=== PATIENT | male | born 1990 ===

== ENCOUNTER 2021-08-23 07:48 | Outpatient (CLI) | payer OTHER | END 2021-08-23 07:50 | disposition home or self-care (01) | LOC: MRI 07:48 | PROVIDERS: ATTEND General Practice | DX: M25.562 Pain in left knee (principal) | CPT/HCPCS: 73718 ==

== ENCOUNTER 2022-02-05 09:48 | Outpatient (CLI) | payer OTHER | END 2022-02-05 10:08 | disposition home or self-care (01) | LOC: SONOGRAMA 09:48 | PROVIDERS: ATTEND Physical Medicine & Rehabilitation | DX: M25.511 Pain in right shoulder (principal) ==

== ENCOUNTER 2022-03-03 11:44 | Emergency (ER) | payer OTHER ==
[~2022-03-03] VITALS: Ht 190.5 cm; Wt 88.5 kg
== END 2022-03-03 14:55 | disposition home or self-care (01) ==
LOC: ER 11:44
DX: R07.89 Other chest pain (principal)

== ENCOUNTER 2022-03-15 11:42 | Outpatient (CLI) | payer OTHER | END 2022-03-15 12:06 | disposition home or self-care (01) | LOC: MRI 11:42 | PROVIDERS: ATTEND General Practice | DX: M54.9 Dorsalgia, unspecified (principal); M54.2 Cervicalgia | CPT/HCPCS: 72141; 72148 ==

== ENCOUNTER 2022-03-17 09:20 | Emergency (ER) | payer OTHER ==
[~2022-03-17] VITALS: Ht 193 cm; Wt 86.2 kg
== END 2022-03-17 12:00 | disposition home or self-care (01) ==
LOC: ER 09:20
DX: R20.0 Anesthesia of skin (principal); R53.1 Weakness

== ENCOUNTER 2022-11-08 10:31 | Outpatient (CLI) | payer OTHER | END 2022-11-08 10:40 | disposition home or self-care (01) | LOC: RAD 10:31 | DX: M99.01 Segmental and somatic dysfunction of cervical region (principal); M99.02 Segmental and somatic dysfunction of thoracic region; M99.03 Segmental and somatic dysfunction of lumbar region; M99.04 Segmental and somatic dysfunction of sacral region ==

== ENCOUNTER 2024-03-21 21:38 | Emergency (ER) | payer OTHER ==
[~2024-03-21] VITALS: Ht 193 cm; Wt 90.7 kg
[2024-03-21] MEDS ORDERED: MONTELUKAST SOD10 MG PO (21:44)
[2024-03-21] MEDS ORDERED: LIDOCAINE HCL 1% 10ML VIAL ONE (21:56)
[2024-03-21] MEDS ORDERED: TETANUS DIPHTHERIA TOX. ADSOR 5 ML VIAL IM ONE ×2 (21:56→22:28)
[2024-03-21] MEDS ORDERED: LIDOCAINE HCL 1% 10ML VIAL IJ ONE (22:00)
[2024-03-21] MEDS ORDERED: TETANUS & DIPHTHERIA TOX,ADULT 0.5 ML VIAL IM ONE (22:00)
== END 2024-03-21 23:01 | disposition home or self-care (01) ==
LOC: ER 21:38
DX: S61.022A Laceration with foreign body of left thumb without damage to nail, initial encounter (principal); W26.0XXA Contact with knife, initial encounter; Y93.89 Activity, other specified; Y92.89 Other specified places as the place of occurrence of the external cause